=== PATIENT | female | born 1995 ===

== ENCOUNTER 2022-01-28 15:57 | Emergency (ER) | payer MEDICAID ==
[2022-01-28 16:03] VITALS: BP 110/68
== END 2022-01-28 21:36 | disposition left against medical advice (07) ==
LOC: ED 15:57
DX: S09.90XA Unspecified injury of head, initial encounter (principal); Z53.21 Procedure and treatment not carried out due to patient leaving prior to being seen by health care provider; X58.XXXA Exposure to other specified factors, initial encounter